=== PATIENT | male | born 1970 | race Caucasian/White ===

== ENCOUNTER 2018-12-30 16:54 | Inpatient (IN) | payer MEDICARE, BC ==
[2018-12-30] MEDS ORDERED: Sodium Chloride 0.9% 10 ML Syringe FLUSH PRN (17:22)
[2018-12-30] MEDS ORDERED: Acetaminophen 325 MG Tab PO PRN (17:22)
[2018-12-30] MEDS ORDERED: fentaNYL 100 MCG/2 ML SDV IVPUSH PRN (17:30)
[2018-12-30 18:02] LABS: CHLORIDE,CL 106 mEq/L (98-106); SODIUM,NA 141 mEq/L (136-145)
[2018-12-30] MEDS: Baclofen 10 MG Tab PO SCH (20:52)
[2018-12-31] MEDS: Sertraline 25 MG Tab PO SCH (08:00)
[2018-12-31] MEDS: Baclofen 10 MG Tab PO SCH ×2 (08:23→20:03)
--- NOTE | 2018-12-31 09:12 | PCM.PN ---
- General Info Date of Service: 12/31/18 Admission Dx/Problem (Free Text): Sacral Ulcer Vulnerable Adult Functional Status: Reports: Pain Controlled (denies any pain, states feels discomfort to the pressure ulcer when he is repositioned), Tolerating Diet, Urinating. Denies: Ambulating - Review of Systems General: Reports: Weakness, Fatigue. Denies: Fever HEENT: Reports: No Symptoms Pulmonary: Denies: Shortness of Breath, Cough Cardiovascular: Reports: Lightheadedness. Denies: Chest Pain, Edema Gastrointestinal: Denies: Abdominal Pain, Nausea, Vomiting Genitourinary: Reports: No Symptoms Musculoskeletal: Reports: Other (patient is unable to move his extremities due to ALS) Skin: Reports: Other (pressure ulcer to sacral/buttock region) Neurological: Reports: Pre-Existing Deficit, Trouble Speaking, Weakness - Patient Data Vitals - Most Recent: Last Vital Signs Temp 98.7 F 12/31/18 00:00 Pulse 71 12/31/18 00:00 Resp 16 12/31/18 00:00 BP 118/87 12/31/18 00:00 Pulse Ox 94 L 12/31/18 00:00 Weight - Most Recent: 162 lb 14.4 oz Lab Results Last 24 Hours: Laboratory Results - last 24 hr 12/30/18 12/30/18 Range/Units 17:22 17:22 WBC 11.2 H (5.0-10.0) 10^3/uL RBC 5.69 (4.50-6.00) 10^6/uL Hgb 17.0 (14.0-18.0) g/dL Hct 49.8 (40.0-54.0) % MCV 87.5 (82.0-94.0) fL MCH 29.9 (27.0-32.0) pg MCHC 34.1 (33.0-38.0) g/dL RDW Coeff of Fide 14.4 (11.0-15.0) % Plt Count 178 (150-400) 10^3/uL MPV 13.8 fL Sodium 141 (136-145) mEq/L Potassium 4.2 (3.5-5.0) mEq/L Chloride 106 (98-106) mEq/L Carbon Dioxide 27 (21-32) mmol/L BUN 12 (7-18) mg/dL Creatinine 0.4 L (0.7-1.3) mg/dL Est Cr Clr Drug Dosing TNP Estimated GFR (MDRD) > 60 (>=60) mL/min Glucose 107 H (75-99) mg/dL Calcium 8.8 (8.4-10.1) mg/dL C-Reactive Protein 0.9 H (0.2-0.8) mg/dL Med Orders - Current: Current Medications Acetaminophen (Tylenol) 650 mg PO Q4H PRN PRN Reason: Pain (Mild 1-3)/fever Baclofen (Lioresal) 5 mg PO BID [facility] Last Admin: 12/31/18 08:23 Dose: 5 mg Fentanyl (Sublimaze) 25 mcg IVPUSH Q6H PRN PRN Reason: Pain/Fever Sertraline HCl (Zoloft) 50 mg PO DAILY [facility] Sodium Chloride (Saline Flush) 10 ml FLUSH ASDIRECTED PRN PRN Reason: Keep Vein Open Triamcinolone Acetonide (Triamcinolone Acetonide 0.1% Oint) 0 gm TOP DAILY [facility] - Exam General: Alert, Oriented HEENT: Mucous Membr. Moist/[place] Neck: Supple Lungs: Clear to Auscultation, Normal Respiratory Effort Cardiovascular: Regular Rate, Regular Rhythm GI/Abdominal Exam: Normal Bowel Sounds, Soft, Non-Tender Extremities: Other (patient has contractures; unable to move extremities due to chronic ALS; is dependent for all cares. ) Skin: Other (has dressing intact to buttock/sacral region due to stage 2 pressure ulcer) Neurological: Other (operates computer with his eyes) Psy/Mental Status: Alert - Problem List & Annotations (1) Sacral decubitus ulcer, stage II SNOMED Code(s): 982139536, 639306173 Code(s): L89.152 - PRESSURE ULCER OF SACRAL REGION, STAGE 2 Status: Acute Priority: High Current Visit: Yes (2) ALS (amyotrophic lateral sclerosis) SNOMED Code(s): 87758589 Code(s): G12.21 - AMYOTROPHIC LATERAL SCLEROSIS Status: Chronic Priority : High Current Visit: Yes (3) Failure to thrive in adult SNOMED Code(s): 707740076 Code(s): R62.7 - ADULT FAILURE TO THRIVE Status: Acute Priority: High Current Visit: Yes (4) Palliative care patient SNOMED Code(s): 916299757 Code(s): Z51.5 - ENCOUNTER FOR PALLIATIVE CARE Status: Acute Priority: High Current Visit: Yes - Problem List Review Problem List Initiated/Reviewed/Updated: Yes - Assessment Assessment:: 1. Sacral ulcer, stage 2 2. ALS 3. Vulnerable Adult 4. Palliative care patient - Plan Plan:: patient denies any pain this am. States does not have any burning or pain to sacral area except with movement/repositioning. Patient is dependent on staff for all cares due to weakness/contractures/inability to move extremities due to ALS. Operates his computer with his eyes, does still speak although difficult to understand at times. Oriented x 3. Able to make needs known. Has nonadhesive bandage to sacral area. On air care mattress. Patient vulnerable adult due to chronic diagnosis of ALS, needs 24 hour care. Unable to care for self, does not have 24 hour caregiver at home. Continue with routine cares. 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
[2018-12-31] MEDS: Triamcinolone Acetonide 0.1% Oint 15 GM Tube TOP SCH (22:21)
[2019-01-01] MEDS: Baclofen 10 MG Tab PO SCH ×2 (11:56→19:39)
[2019-01-01] MEDS: Sertraline 25 MG Tab PO SCH (11:56)
[2019-01-01] MEDS: Triamcinolone Acetonide 0.1% Oint 15 GM Tube TOP SCH (11:57)
--- NOTE | 2019-01-01 20:04 | PCM.PN ---
- General Info Date of Service: 01/01/19 Admission Dx/Problem (Free Text): Sacral Ulcer Vulnerable Adult Functional Status: Reports: Pain Controlled, Tolerating Diet. Denies: Ambulating - Review of Systems General: Reports: Weakness, Fatigue. Denies: Fever HEENT: Reports: No Symptoms Pulmonary: Denies: Shortness of Breath Cardiovascular: Denies: Edema, Lightheadedness Gastrointestinal: Denies: Abdominal Pain, Nausea, Vomiting Genitourinary: Reports: No Symptoms Musculoskeletal: Reports: Other (weakness. Minimal movement with legs and arms due to advanced ALS) Skin: Reports: Other (sacral ulcer) Neurological: Reports: Pre-Existing Deficit, Weakness - Patient Data Vitals - Most Recent: Last Vital Signs Temp 98.9 F 01/01/19 16:00 Pulse 112 H 01/01/19 16:00 Resp 18 01/01/19 16:00 BP 112/91 H 01/01/19 16:00 Pulse Ox 93 L 01/01/19 16:00 Weight - Most Recent: 162 lb 14.4 oz Med Orders - Current: Current Medications Acetaminophen (Tylenol) 650 mg PO Q4H PRN PRN Reason: Pain (Mild 1-3)/fever Baclofen (Lioresal) 5 mg PO BID [facility] Last Admin: 01/01/19 19:39 Dose: 5 mg Fentanyl (Sublimaze) 25 mcg IVPUSH Q6H PRN PRN Reason: Pain/Fever Sertraline HCl (Zoloft) 50 mg PO DAILY [facility] Last Admin: 01/01/19 11:56 Dose: 50 mg Sodium Chloride (Saline Flush) 10 ml FLUSH ASDIRECTED PRN PRN Reason: Keep Vein Open Triamcinolone Acetonide (Triamcinolone Acetonide 0.1% Oint) 0 gm TOP DAILY [facility] Last Admin: 01/01/19 11:57 Dose: Not Given - Exam General: Alert, Oriented HEENT: Mucous Membr. Moist/[place] Neck: Supple Lungs: Clear to Auscultation, Normal Respiratory Effort Cardiovascular: Regular Rate, Regular Rhythm GI/Abdominal Exam: Normal Bowel Sounds, Soft, Non-Tender Extremities: Limited Range of Motion Skin: Warm, Dry, Other (bandage intact to sacral ulcer) - Problem List & Annotations (1) Sacral decubitus ulcer, stage II SNOMED Code(s): 741050705, 293205882 Code(s): L89.152 - PRESSURE ULCER OF SACRAL REGION, STAGE 2 Status: Acute Priority: High Current Visit: Yes (2) ALS (amyotrophic lateral sclerosis) SNOMED Code(s): 87305618 Code(s): G12.21 - AMYOTROPHIC LATERAL SCLEROSIS Status: Chronic Priority : High Current Visit: Yes (3) Failure to thrive in adult SNOMED Code(s): 621836903 Code(s): R62.7 - ADULT FAILURE TO THRIVE Status: Acute Priority: High Current Visit: Yes (4) Palliative care patient SNOMED Code(s): 483962132 Code(s): Z51.5 - ENCOUNTER FOR PALLIATIVE CARE Status: Acute Priority: High Current Visit: Yes - Problem List Review Problem List Initiated/Reviewed/Updated: Yes - Assessment Assessment:: 1. Sacral ulcer, stage 2 2. ALS 3. Vulnerable Adult 4. Palliative care patient - Plan Plan:: patient denies any pain this am. States does not have any burning or pain to sacral area except with movement/repositioning. Patient is dependent on staff for all cares due to weakness/contractures/inability to move extremities due to ALS. Operates his computer with his eyes, does still speak although difficult to understand at times. Oriented x 3. Able to make needs known. Has nonadhesive bandage to sacral area. On air care mattress. Patient vulnerable adult due to chronic diagnosis of ALS, needs 24 hour care. Unable to care for self, does not have 24 hour caregiver at home. Continue with routine cares. rn support services for discharge plan, potential [facility] placement. 01-01-2019 Patient stable. Resting comfortably in bed. Denies any pain. Does have issues with dysphagia at times, assisted with eating and all cares. Lung sounds clear, abdomen soft, nontender. Family conference held today by Dr. Putnam with , mother and patient as well as nursing staff in regards to discharge plan. Patient is at the point with the progression of his disease of needing 24 hour care. has been reaching out to many entities in regards to this over the last month or so as patient's mother has been the primary child care aide up to this point but can no longer provide the amount of care he requires. Patient is aware of this need. He does express concerns of "just letting him ". rn support services will reach out to determine if in home care is available and the cost it may require for this. Adria Shaffer is aware as well in the event he will need placement.
--- NOTE | 2019-01-02 21:51 | PCM.DCSUM1 ---
Discharge Summary - Hospital Course Free Text/Narrative:: Patient presented to clinic to see Dr. Putnam due to pressure ulcers on sacrum, inability to care for self. Was incontinent 2 days prior. Had washed the chair with Clean and had applied plastic and a sheet to the chair. Now noting more pain to these areas. Family had noted brownish, bloody drainage to his clothing. Patient has advanced ALS, is now at the point in his disease that needs 24 hour care and family unable to provide this any longer. Patient found to have stage 2 pressure ulcer to left buttock. Smaller one on right buttock. Admitted for monitoring of this, air care mattress, PT, nursing care as vulnerable adult. Diagnosis: Stroke: No Modified Inocencio Scale: No Symptoms at All Modified Valley Scale Score: 0 - Discharge Data Discharge Date: 01/02/19 Discharge Disposition: DC/Tfer W/I Hosp To [place] [id number] Condition: Poor - Discharge Diagnosis/Problem(s) (1) Sacral decubitus ulcer, stage II SNOMED Code(s): 399003572, 857765482 ICD Code: L89.152 - PRESSURE ULCER OF SACRAL REGION, STAGE 2 Status: Acute Priority: High (2) ALS (amyotrophic lateral sclerosis) SNOMED Code(s): 59260603 ICD Code: G12.21 - AMYOTROPHIC LATERAL SCLEROSIS Status: Chronic Priority : High (3) Failure to thrive in adult SNOMED Code(s): 822847266 ICD Code: R62.7 - ADULT FAILURE TO THRIVE Status: Acute Priority: High (4) Palliative care patient SNOMED Code(s): 542849184 ICD Code: Z51.5 - ENCOUNTER FOR PALLIATIVE CARE Status: Acute Priority: High - Patient Summary/Data Complications: none Consults: Consultations 12/30/18 17:22 Consult to Case Management/Substation Design Draftsperson [CONS] Routine PT Evaluation and Treatment [CONS] Routine Hospital Course: Patient stable. Does require full assist for feeding, repositioning, and all cares. Air care mattress used. Pressure ulcer is slowly improving. Family conference has been held with and mother. Patient is aware requires more care than available at home at this point. He does wish for 24 hour care at home, social contact worker is looking to find possible care. Costs of care are extensive, patient is aware. SOFI has also been informed may need placement. Transferred [facility] as vulnerable adult while arrangements being sought for either 24 hour care at home versus group home placement. 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 - Patient Instructions Diet: Usual Diet as Tolerated Activity: As Tolerated - Discharge Plan *PRESCRIPTION DRUG MONITORING PROGRAM REVIEWED*: No *COPY OF PRESCRIPTION DRUG MONITORING REPORT IN PATIENT AVELINA: No Home Medications: Home Meds Baclofen 5 mg PO BID 12/30/18 [History] Sertraline HCl 1 tab PO DAILY 12/30/18 [History] Triamcinolone Acetonide [Triamcinolone Acetonide 0.1% Oint] 1 applic TOP DAILY 12/30/18 [History] - Discharge Summary/Plan Comment DC Time >30 min.: No - General Info Date of Service: 01/02/19 Admission Dx/Problem (Free Text: Sacral Ulcer Vulnerable Adult Functional Status: Reports: Pain Controlled, Tolerating Diet, Urinating. Denies : Ambulating - Review of Systems General: Reports: Weakness, Fatigue HEENT: Reports: Dysphasia Pulmonary: Denies: Shortness of Breath, Cough Cardiovascular: Denies: Chest Pain, Edema, Lightheadedness Gastrointestinal: Denies: Abdominal Pain, Nausea, Vomiting Genitourinary: Reports: No Symptoms Neurological: Reports: Pre-Existing Deficit, Weakness - Patient Data Vitals - Most Recent: Last Vital Signs Temp 98.3 F 01/02/19 00:00 Pulse 88 01/02/19 00:00 Resp 20 01/02/19 00:00 BP 114/78 01/02/19 00:00 Pulse Ox 93 L 01/02/19 00:00 Weight - Most Recent: 162 lb 14.4 oz Med Orders - Current: Current Medications Discontinued Medications Acetaminophen (Tylenol) 650 mg PO Q4H PRN PRN Reason: Pain (Mild 1-3)/fever Baclofen (Lioresal) 5 mg PO BID [facility] Last Admin: 01/01/19 19:39 Dose: 5 mg Fentanyl (Sublimaze) 25 mcg IVPUSH Q6H PRN PRN Reason: Pain/Fever Sertraline HCl (Zoloft) 50 mg PO DAILY [facility] Last Admin: 01/01/19 11:56 Dose: 50 mg Sodium Chloride (Saline Flush) 10 ml FLUSH ASDIRECTED PRN PRN Reason: Keep Vein Open Triamcinolone Acetonide (Triamcinolone Acetonide 0.1% Oint) 0 gm TOP DAILY [facility] Last Admin: 01/01/19 11:57 Dose: Not Given - Exam General: Reports: Alert, Oriented HEENT: Reports: Mucous Membr. Moist/[place]: Reports: Supple Lungs: Reports: Clear to Auscultation, Normal Respiratory Effort Cardiovascular: Reports: Regular Rate, Regular Rhythm GI/Abdominal Exam: Normal Bowel Sounds, Non-Tender Extremities: No Pedal Edema, Limited Range of Motion, Other (contractures of hands noted, weakness in legs) Skin: Reports: Warm, Dry Wound/Incisions: Reports: Decubitis
== END 2019-01-02 09:00 | disposition swing bed (61) | DRG 593 ==
LOC: CC.MS 16:54 → UNDOADMIN 16:54 → CC.MS 17:22 → UNDOADMIN 17:22 → UNDODISIN 01-02 09:00
PROVIDERS: ADMIT Family Medicine; ATTEND Family Medicine
DX: L89.152 Pressure ulcer of sacral region, stage 2 (principal); G12.21 Amyotrophic lateral sclerosis; R62.7 Adult failure to thrive; Z51.5 Encounter for palliative care; F32.9 Major depressive disorder, single episode, unspecified; Z79.899 Other long term (current) drug therapy; Z90.81 Acquired absence of spleen
CPT/HCPCS: 36415; 80048; 85027; 86140; A9270-GY

== ENCOUNTER 2019-01-02 09:01 | Inpatient (IN) | payer MEDICARE, BC ==
[2019-01-02] MEDS ORDERED: Acetaminophen 325 MG Tab PO PRN (09:30)
[2019-01-02] MEDS ORDERED: Sodium Chloride 0.9% 10 ML Syringe FLUSH PRN ×2 (09:30)
[2019-01-02] MEDS ORDERED: fentaNYL 100 MCG/2 ML SDV IVPUSH PRN (09:30)
[2019-01-02] MEDS: Sertraline 25 MG Tab PO SCH (11:55)
[2019-01-02] MEDS: Baclofen 10 MG Tab PO SCH (11:55)
[2019-01-02] MEDS ORDERED: Triamcinolone Acetonide 0.1% Oint 15 GM Tube TOP SCH (12:00)
[2019-01-03] MEDS: Baclofen 10 MG Tab PO SCH ×2 (00:07→12:00)
[2019-01-03] MEDS: Sertraline 25 MG Tab PO SCH (12:00)
[2019-01-03] MEDS: REFRESH EYE EYEBOTH PRN (15:02)
[2019-01-04] MEDS: Baclofen 10 MG Tab PO SCH ×3 (00:22→23:59)
[2019-01-04] MEDS: REFRESH EYE EYEBOTH PRN ×2 (00:23→23:59)
[2019-01-04] MEDS: Sertraline 25 MG Tab PO SCH (12:31)
[2019-01-05] MEDS: Triamcinolone Acetonide 0.1% Oint 15 GM Tube TOP PRN
[2019-01-05] MEDS: Baclofen 10 MG Tab PO SCH (12:08)
[2019-01-05] MEDS: Sertraline 25 MG Tab PO SCH (12:08)
[2019-01-06] MEDS: Baclofen 10 MG Tab PO SCH ×2 (00:35→12:19)
[2019-01-06] MEDS: Sertraline 25 MG Tab PO SCH (12:19)
[2019-01-06] MEDS: Triamcinolone Acetonide 0.1% Oint 15 GM Tube TOP PRN (17:00)
[2019-01-07] MEDS: Baclofen 10 MG Tab PO SCH ×2 (00:07→15:17)
[2019-01-07] MEDS ORDERED: Nystatin Crm 30 GM Tube TOP SCH (08:00)
[2019-01-07] MEDS: Sertraline 25 MG Tab PO SCH (15:17)
[2019-01-07] MEDS: Nystatin Crm 30 GM Tube TOP PRN (15:18)
[2019-01-08] MEDS: Baclofen 10 MG Tab PO SCH ×2 (00:07→11:51)
[2019-01-08] MEDS: Sertraline 25 MG Tab PO SCH (11:50)
[2019-01-08] MEDS ORDERED: Tuberculin, PPD 5 Units/0.1 ML 1 ML MDV IDERM ONE (13:47)
[2019-01-08] MEDS: Nystatin Crm 30 GM Tube TOP PRN (15:21)
[2019-01-08] MEDS: Triamcinolone Acetonide 0.1% Oint 15 GM Tube TOP PRN (15:22)
[2019-01-09] MEDS: Baclofen 10 MG Tab PO SCH (00:08)
--- NOTE | 2019-01-09 22:07 | PCM.DCSUM1 ---
Discharge Summary - Hospital Course Free Text/Narrative:: Jake was admitted initially to acute inpatient due to advanced stages of ALS and pressure ulcers to sacral area. Had bilateral ulcers, one stage 2. Patient is vulnerable adult due to inability to care for self due to weakness from ALS. Had been getting 24 hour care from family at home but has been more care now than either his mother or his can do alone. Has had mepolex dressings to sacral area. Been on air care bed. Transferred to [facility] due to inability to return home, care of pressure ulcers and attempts to find home care for the patient. Diagnosis: Stroke: No - Discharge Data Discharge Date: 01/09/19 Discharge Disposition: DC/Tfer to SNF 03 Condition: Poor - Patient Summary/Data Complications: none Consults: Consultations 01/02/19 09:30 Consult to Case Management/Link Cutter [CONS] Routine PT Evaluation and Treatment [CONS] Routine Hospital Course: Patient stable. Patient, family and social service manager have researched care providers for at home but only ones available are through [facility] and [facility] but are very costly, at more of an expense than [place] [facility] [place]. Pressure ulcers are improving, grade 1. Patient does require complete care for all ADLs. Is no weight bearing, arms have contractures. Plan is to transfer to [facility]. If able to find caregiver, could return home if 24 hour care is arranged. Patient and family are in understanding, have had several family conferences with all. - Patient Instructions Diet: Usual Diet as Tolerated Activity: As Tolerated - Discharge Plan *PRESCRIPTION DRUG MONITORING PROGRAM REVIEWED*: No *COPY OF PRESCRIPTION DRUG MONITORING REPORT IN PATIENT AVELINA: No Prescriptions/Med Rec: Nystatin [Nystatin Crm] 1 gm TOP BID PRN #1 tube PRN Reason: Rash Refresh Eye Drops 1 drop EYEBOTH Q4H PRN #1 PRN Reason: Dry Eyes Home Medications: Home Meds Baclofen 5 mg PO BID 12/30/18 [History] Sertraline HCl 1 tab PO DAILY 12/30/18 [History] Triamcinolone Acetonide [Triamcinolone Acetonide 0.1% Oint] 1 applic TOP DAILY 12/30/18 [History] Nystatin [Nystatin Crm] 1 gm TOP BID PRN #1 tube 01/09/19 [Rx] Refresh Eye Drops 1 drop EYEBOTH Q4H PRN #1 01/09/19 [Rx] - Discharge Summary/Plan Comment DC Time >30 min.: Yes Discharge Summary/Plan Comment: Transfer to [facility] Time spent with patient and family 20 minutes Time for orders 10 minutes Time for documentation 10 minutes - General Info Date of Service: 01/09/19 Admission Dx/Problem (Free Text: ALS Failure to Thrive Sacral Ulcers Functional Status: Reports: Pain Controlled, Tolerating Diet. Denies: Ambulating - Review of Systems General: Reports: Weakness, Fatigue, Malaise HEENT: Reports: No Symptoms Pulmonary: Denies: Shortness of Breath, Cough Cardiovascular: Denies: Chest Pain, Edema Gastrointestinal: Denies: Abdominal Pain, Nausea, Vomiting Genitourinary: Reports: No Symptoms Musculoskeletal: Reports: Other (generalized muscle weakness and contractures to hands) Skin: Reports: Other (pressure sores) Neurological: Reports: Pre-Existing Deficit, Weakness Psychiatric: Reports: No Symptoms - Patient Data Vitals - Most Recent: Last Vital Signs Temp 98.6 F 01/09/19 00:00 Pulse 73 01/09/19 00:00 Resp 16 01/09/19 00:00 BP 127/87 01/09/19 00:00 Pulse Ox 95 01/09/19 00:00 Weight - Most Recent: 163 lb Med Orders - Current: Current Medications Discontinued Medications Acetaminophen (Tylenol) 650 mg PO Q4H PRN PRN Reason: Pain (Mild 1-3)/fever Baclofen (Lioresal) 5 mg PO BID@0000,1200 [facility] Last Admin: 01/09/19 00:08 Dose: 5 mg Fentanyl (Sublimaze) 25 mcg IVPUSH Q6H PRN PRN Reason: Pain/Fever Ptom Refresh Eye (Drops 1 Drop) 1 drop EYEBOTH Q4H PRN PRN Reason: Dry Eyes Last Admin: 01/04/19 23:59 Dose: 1 drop Nystatin (Nystatin Crm) 0 gm TOP BID [facility] Last Admin: 01/07/19 12:43 Dose: Not Given Nystatin (Nystatin Crm) 1 gm TOP BID PRN PRN Reason: Rash Last Admin: 01/07/19 15:18 Dose: 1 gm Sertraline HCl (Zoloft) 50 mg PO DAILY@1200 [facility] Last Admin: 01/08/19 11:50 Dose: 50 mg Sodium Chloride (Saline Flush) 10 ml FLUSH ASDIRECTED PRN PRN Reason: Keep Vein Open Sodium Chloride (Saline Flush) 10 ml FLUSH ASDIRECTED PRN PRN Reason: Keep Vein Open Triamcinolone Acetonide (Triamcinolone Acetonide 0.1% Oint) 0 gm TOP DAILY@ 1200 [facility] Triamcinolone Acetonide (Triamcinolone Acetonide 0.1% Oint) 15 gm TOP BID PRN PRN Reason: Rash Last Admin: 01/08/19 15:22 Dose: 1 applic Tuberculin PPD (Aplisol) 5 unit IDERM ONETIME ONE Stop: 01/08/19 13:48 Last Admin: 01/08/19 16:33 Dose: 5 unit - Exam General: Reports: Alert, Oriented HEENT: Reports: Mucous Membr. Moist/[place] Neck: Reports: Supple Lungs: Reports: Clear to Auscultation, Normal Respiratory Effort Cardiovascular: Reports: Regular Rate, Regular Rhythm GI/Abdominal Exam: Normal Bowel Sounds, Soft, Non-Tender Extremities: Limited Range of Motion Skin: Reports: Warm, Dry Wound/Incisions: Reports: Erythema Improving, Decubitis (stage 1)
== END 2019-01-09 11:15 | DRG 593 ==
LOC: CC.MS 09:01 → UNDOADMIN 09:14 → CC.MS 09:14
PROVIDERS: ADMIT Family Medicine; ATTEND Family Medicine
DX: L89.152 Pressure ulcer of sacral region, stage 2 (principal); G12.21 Amyotrophic lateral sclerosis; R62.7 Adult failure to thrive; Z51.5 Encounter for palliative care; Z79.899 Other long term (current) drug therapy
CPT/HCPCS: 86580; A9270-GY